=== PATIENT | female | born 1985 | race Caucasian/White ===

== ENCOUNTER 2017-04-09 19:06 | Emergency (ER) | payer SELFPAY ==
[~2017-04-09] VITALS: Ht 160 cm; Wt 77.1 kg
[2017-04-09 19:45] VITALS: BP 121/69
[2017-04-09 19:49] VITALS: BP 121/69
--- NOTE | 2017-04-09 19:49 | NUR ---
TO LOBBY A/W BED, JOJO CHOWDHURY NOTED
--- NOTE | 2017-04-09 20:38 | NUR ---
PATIENT LEFT WITHOUT BEING SEEN BY DR. RADER. NO FURTHER CARE PROVIDED FOR PATIENT.
[2017-04-09 21:03] LABS: APPEARANCE,URINE SL CLOUDY (CLEAR); BILIRUBIN,URINE NEGATIVE (NEGATIVE); BLOOD, URINE NEGATIVE (NEGATIVE); COLOR,URINE YELLOW (YELLOW); LEUKOCYTE ESTERASE ,URINE NEGATIVE (NEGATIVE); NITRITE, URINE NEGATIVE (NEGATIVE); PH,URINE >=9.0 (5.0-9.0); UGLUCOSE NEGATIVE (NEGATIVE)
[2017-04-09 21:22] LABS: RBC,URINE 0-5 (RARE) /HPF (0-5); WBC,URINE 0-5 (RARE) /HPF (0-5)
== END 2017-04-09 20:38 | disposition left against medical advice (07) ==
LOC: MED 19:06
DX: R10.9 Unspecified abdominal pain (principal); Z53.21 Procedure and treatment not carried out due to patient leaving prior to being seen by health care provider
CPT/HCPCS: 81001; 81025; 87086; 99281; 99284

== ENCOUNTER 2017-05-03 20:36 | Emergency (ER) | payer MEDICAID ==
[~2017-05-03] VITALS: Ht 152.4 cm; Wt 80.9 kg
[2017-05-03 21:18] VITALS: BP 127/99
--- NOTE | 2017-05-03 21:35 | NUR ---
PATIENT AMBULATED TO ER CHAIR E.
--- NOTE | 2017-05-03 21:37 | NUR ---
PATIENT IS A 31 Y/O FEMALE WHO PRESENTS TO THE ED C/O SORE THROAT. PT STATES, "I HAVE BEEN SICK FOR ABOUT 1 WEEK." PT REPORTS 6/10 ACHING THROAT AND FACIAL PAIN THAT DOES NOT RADIATE. PT DENIES CP, SOB, N/V/D. PT AAOX4, RR EVEN/UNLABORED, LUNG SOUNDS CLEAR BL. PT REPOSITIONED FOR COMFORT, PT SITTING IN CHAIR. ER MD DR. PASCAL NOTIFIED. WILL CONTINUE TO MONITOR.
--- NOTE | 2017-05-04 | NUR ---
Note undone in EDM - 05/04/17 at 0202 by MEDJANEV Patient discharged with v/s stable. Written and verbal after care instructions given and explained. Patient alert, oriented and verbalized understanding of instructions. Ambulatory with steady gait. All questions addressed prior to discharge. ID band removed. Patient advised to follow up with PMD. Rx of IBUPROFEN 600MG AND PROMETHAZINE 6.25-15MG/5ML given. Patient educated on indication of medication including possible reaction and side effects. Opportunity to ask questions provided and answered.
[2017-05-04 00:52] VITALS: BP 119/82
--- NOTE | 2017-05-04 00:52 | NUR ---
Patient discharged with v/s stable. Written and verbal after care instructions given and explained. Patient alert, oriented and verbalized understanding of instructions. Ambulatory with steady gait. All questions addressed prior to discharge. ID band removed. Patient advised to follow up with PMD. Rx of IBUPROFEN 600MG AND PROMETHAZINE 6.25-15MG/5ML given. Patient educated on indication of medication including possible reaction and side effects. Opportunity to ask questions provided and answered.
== END 2017-05-04 00:52 | disposition home or self-care (01) ==
LOC: MED 20:36
DX: J06.9 Acute upper respiratory infection, unspecified (principal)
CPT/HCPCS: 71045; 87081; 99285